=== PATIENT | male | born 1960 | race Caucasian/White ===

== ENCOUNTER 2024-12-24 16:59 | Emergency (ER) | payer OTHER, MEDICAID ==
[~2024-12-24] VITALS: Ht 177.8 cm; Wt 90.0 kg
[2024-12-24] MEDS ORDERED: APIX5TAB PO (17:11)
[2024-12-24 17:23] VITALS: BP 121/65
[2024-12-24 17:24] VITALS: PULSE 97; RESP 18; O2SAT 91
--- NOTE | 2024-12-24 17:49 | DVH ---
CLINICAL INFORMATION: Fall injury. Hit head. On blood thinners. TECHNIQUE: Axial imaging was obtained through the brain without contrast. Coronal and sagittal reform atted images were obtained, reviewed, and stored. Images were reviewed in brain and bone windows. Al l CT scans at this medical facility are performed using dose modulation techniques as appropriate to a performed exam including the following: Automated exposure control was utilized; adjustment of the MA and/or KV according to patient size; and use of iterative reconstruction technique. CTDIvol = 53.4 8 mGy DLP = 1931.22 mGy-cm COMPARISON: None FINDINGS: There is no acute intracranial hemorrhage. No mass effect or midline shift. Scattered areas of hypoattenuation are seen in the periventricular and subcortical white matter, which are nonspecif ic but most likely sequelae of small vessel ischemic disease. The ventricles and sulci are within nor mal limits in size for age. Basal cisterns are patent. The calvarium is unremarkable. Near complete opacification of the visualized portions of the right maxillary sinus. Mild mucosal thickening of the rest of the visualized paranasal sinuses. Mastoid air cells appear clear. IMPRESSION: 1. No CT evidence of acute intracranial abnormality. No acute intracranial hemorrhage. 2. Additional findings as described above.
--- NOTE | 2024-12-24 17:51 | ED.PDOC ---
Luz Elena. trauma (HPI) HPI Comments This is a 64 year old male presenting to the ED with chief complaint of head injury. Patient reports that he had been working on his boat that was on a trailer when his shoe lace got caught and he fell off the boat. Patient relays that he fell onto his back and hit his head against the trailer, but does not recall if he had passed out, not remembering what happened after hitting his head. Patient states that he is now experiencing dizziness with associated nausea. Patient notes he is currently on blood thinners for a previous DVT he had in his right leg. Patient denies any vomiting, diarrhea, abdominal pain, SOB, vision changes, or further injury. Chief Complaint: Fall Injury Time Seen by MD: 17:46 Reviewed notes: Nurses Notes, Medications, Allergies Allergies: Coded Allergies: NO KNOWN ALLERGIES (Unverified , 04/02/15) Home Meds Reported Medications Apixaban Base (ELIQUIS) 5 Mg Tab, 1 TAB PO BID 12/24/24 Information Source: Patient, Spouse Mode of Arrival: Wheelchair Severity: Moderate Timing: Hours Duration: Since onset Prehospital treatment: None Location: Back, Head Mechanism: Fall Past Medical History Past Medical History (Other): DVT Right Leg, Diverticulitis Surgical History: Appendectomy, Cholecystectomy, Hernia Repair, Tonsillectomy Surgical History (Other): Diverticular surgery, Family History Family History: Reviewed,noncontributory to illness Social History Smoker: Non-Smoker Alcohol: Occasionally Drugs: Marijuana Lives In: Home Constitutional: denies: chills, diaphoresis, fatigue, fever, malaise, sweats, weakness, others EENTM: denies: blurred vision, double vision, ear bleeding, ear discharge, ear drainage, ear pain, ear ringing, eye pain, eye redness, hearing loss, mouth pain, mouth swelling, nasal discharge, nose bleeding, nose congestion, nose pain, photophobia, tearing, throat pain, throat swelling, voice changes, others Respiratory: denies: cough, hemoptysis, orthopnea, SOB at rest, shortness of breath, SOB with excertion, stridor, wheezing, others Cardiovascular: denies: chest pain, dizzy spells, diaphoresis, Dyspnea on exertion, edema, irregular heart beat, left arm pain, lightheadedness, palpitat ions, PND, syncope, others Gastrointestinal: reports: nausea; denies: abdomen distended, abdominal pain, blood streaked bowels, constipated, diarrhea, dysphagia, difficulty swallowing, hematemesis, melena, poor appetite, poor fluid intake, rectal bleeding, rectal pain, vomiting, others Genitourinary: denies: burning, dysuria, flank pain, frequency, hematuria, incontinence, penile discharge, penile sore, pain, testicle pain, testicle swelling, urgency, others Neurological: reports: dizziness, others (Loss of consciousness); denies: fainting, headache, left sided numbness, left sided weakness, numbness, paresthesia, pre-existing deficit, right sided numbness, right sided weakness, seizure, speech problems, tingling, tremors, weakness Musculoskeletal: reports: others (Head injury); denies: back pain, gout, joint pain, joint swelling, muscle pain, muscle stiffness, neck pain Integumetry: denies: bruises, change in color, change in hair/nails, dryness, laceration, lesions, lumps, rash, wounds, others Allergic/Immunocompromised: denies: Difficulty Healing, Frequent Infections, Hives, Itching, others Hematologic/Lymphatic: denies: anemia, blood clots, easy bleeding, easy bruising, swollen glands, others Endocrine: denies: excessive hunger, excessive sweating, excessive thirst, excessive urination, flushing, intolerance to cold, intolerance to heat, unexplained weight gain, unexplained weight loss, others Psychiatric: denies: anxiety, bipolar disorder, depression, hopeless, panic disorder, schizophrenia, sleepless, suicidal, others Physical Exam General Appearance: No Apparent Distress HEENT: Normal ENT Inspection, Pharynx Normal, TMs Normal Neck: Full Range of Motion, Non-Tender, Normal, Normal Inspection Respiratory: Chest Non-Tender, Lungs Clear, No Accessory Muscle Use, No Respiratory Distress, Normal Breath Sounds Cardiovascular: No Edema, No JVD, No Murmur, No Gallop, Normal Peripheral Pulses, Regular Rate/Rhythm Breast Exam: Deferred Gastrointestinal: No Organomegaly, Non Tender, No Pulsatile Mass, Normal Bowel Sounds, Soft Genitalia: Deferred Pelvic: Deferred Rectal: Deferred Extremities: No calf tenderness, Normal capillary refill, Normal inspection, Normal range of motion, Non-tender, No pedal edema Musculoskeletal : Apperance: Normal Neurologic: Alert, applied behavior science specialist II-XII nml as Tested, No Motor Deficits, Normal Affect, Normal Mood, No Sensory Deficits Cerebellar Function: Normal Reflexes: Normal Skin: Dry, Normal Color, Warm Lymphatic: No Adenopathy Was a procedure done? Was a procedure done?: No Differential Diagnosis Multiple Trauma: Closed Head Injury, Abrasions, Contusion X-Ray, Labs, Meds, VS Vital Signs Date Time Temp Pulse Resp B/P (MAP) Pulse Ox O2 Delivery O2 Flow Rate FiO2 12/24/24 17:24 97 18 91 Room Air* 0 21 12/24/24 17:23 99.3 96 16 121/65 (83) 90 99.3 12/24/24 17:06 99.2 99 18 120/[address] Head indicates: 1. No CT evidence of acute intracranial abnormality. No acute intracranial hemorrhage. 2. Additional findings as described above. The patient will be discharged at this time The patient will return to the emergency department's condition worsens The patient understands and agrees with the management. Images Reviewed?: Images reviewed and evaluated by me Time of 1ST Reevaluation: 18:15 Reevaluation 1ST: Improved Patient Education/Counseling: Diagnosis, Treatment, Prognosis, Need For Follow Up Family Education/Counseling: Diagnosis, Treatment, Prognosis, Need For Follow Up Departure 1 Departure Time of Disposition: 18:15 Impression: Primary Impression: History of fall Additional Impression: Blunt head trauma Qualified Codes: S09.8XXA - Other specified injuries of head, initial encounter Disposition: HOME / SELF CARE / HOMELESS Condition: Fair Discharged With: Self Critical Care Note Critical Care Time?: No Stability Stability form required: No Heart Score Heart Score: Heart Score Response (Comments) Value History N/A 0 EKG N/A 0 Age N/A 0 Risk Factors N/A 0 Troponin N/A 0 Total 0 I personally scribed for ZAC CANTU MD ([email or web address]) on 12/24/24 at 17:51. Electronically submitted by Anderson Thao ([email or web address]). I personally scribed for ZAC CANTU MD ([email or web address]) on 12/24/24 at 18:02. Electronically submitted by Anderson Thao ([email or web address]). ZAC CANTU MD Dec 24, 2024 17:51
--- NOTE | 2024-12-24 19:04 | DVH ---
CHEST RADIOGRAPH Indication: low o2 Technique: Single frontal view of the chest was obtained Comparison: None FINDINGS: Lines and Tubes: None Lungs: Mildly prominent bronchovascular markings bilaterally. Pleura: No effusion. No pneumothorax. Cardiomediastinal contours: Cardiomegaly Bones: No acute osseous abnormality. IMPRESSION: 1. Findings suggest congestive failure.
[2024-12-24 19:10] VITALS: PULSE 98; RESP 16; TEMP 100.1; O2SAT 96
== END 2024-12-24 19:19 | disposition left against medical advice (07) ==
LOC: ER 17:01
DX: S09.8XXA Other specified injuries of head, initial encounter (principal); F10.90 Alcohol use, unspecified, uncomplicated; F12.90 Cannabis use, unspecified, uncomplicated; Z79.01 Long term (current) use of anticoagulants; Z86.718 Personal history of other venous thrombosis and embolism; Z90.49 Acquired absence of other specified parts of digestive tract; Z90.89 Acquired absence of other organs; Z91.81 History of falling; Z98.890 Other specified postprocedural states; W18.39XA Other fall on same level, initial encounter; Y93.89 Activity, other specified; Y92.89 Other specified places as the place of occurrence of the external cause; Y99.8 Other external cause status; Y90.9 Presence of alcohol in blood, level not specified
CPT/HCPCS: 70450; 71045